=== PATIENT | male | born 1965 | race Caucasian/White ===

== ENCOUNTER 2018-10-08 07:54 | Emergency (ER) | payer BC, OTHER ==
--- NOTE | 2018-10-08 08:57 | ED ---
Lower Extremity - HPI Summary HPI Summary: Patient is a 53-year-old male who presents emergency department for right foot pain that started yesterday. Patient denies any specific injuries or falls. He does note that he works 2 jobs and stands and walks frequently at work on hard floors. Patient has a history of gastric ulcers and cannot take anti- inflammatories. He has been taking tramadol and Tylenol with mild relief of pain. Pain is only present with walking. Rest makes symptoms better. Symptoms are mild in severity. - History of Current Complaint Chief Complaint: EDExtremityLower Stated Complaint: "R FOOT PAIN" PER PT Time Seen by Provider: 10/08/18 08:14 Hx Obtained From: Patient Pain Intensity: 6 - Allergies/Home Medications Allergies/Adverse Reactions: Allergies Allergy/AdvReac Type Severity Reaction Status Date / Time MS Acetaminophen Allergy Unknown Verified 10/08/18 08:04 [From Darvocet-N] Reaction Details MS Diclofenac [Diclofenac] Allergy Unknown Verified 10/08/18 08:04 Reaction Details MS Indomethacin Allergy Unknown Verified 10/08/18 08:04 [Indomethacin] Reaction Details MS Lidocaine [Lidocaine] Allergy Unknown Verified 10/08/18 08:04 Reaction Details MS Metformin [Metformin] Allergy Unknown Verified 10/08/18 08:04 Reaction Details MS Propoxyphene Allergy Unknown Verified 10/08/18 08:04 [From Darvocet-N] Reaction Details MS Rofecoxib [From Vioxx] Allergy Unknown Verified 10/08/18 08:04 Reaction Details MS Tomato [Tomato] Allergy Unknown Verified 10/08/18 08:04 Reaction Details Perfume Allergy Unknown Verified 10/08/18 08:04 Reaction Details DUST Allergy Unknown Uncoded 10/08/18 08:04 Reaction Details ORANGE Allergy Unknown Uncoded 10/08/18 08:04 Reaction Details SUN Allergy Unknown Uncoded 10/08/18 08:04 Reaction Details PMH/Surg Hx/FS Hx/Imm Hx Previously Healthy: Yes Endocrine/Hematology History: Reports: Hx Diabetes - TYPE 2 Cardiovascular History: Reports: Hx Coronary Artery Disease - ON MED, Hx Hypertension - ON MED Denies: Hx Pacemaker/ICD Respiratory History: Reports: Other Respiratory Problems/Disorders - PNEUMONIA GI History: Reports: Hx Gastroesophageal Reflux Disease - IN THE PAST- BETTER NOW, Hx Ulcer - surgery in 01/2016 History: Reports: Hx Kidney Stones - A FEW YRS AGO Musculoskeletal History: Reports: Hx Arthritis Sensory History: Reports: Hx Contacts or Glasses Denies: Hx Hearing Aid Opthamlomology History: Reports: Hx Contacts or Glasses Neurological History: Reports: Hx Migraine - ONE A MONTH ON AVERAGE Psychiatric History: Denies: Hx Panic Disorder - Surgical History Surgery Procedure, Year, and Place: ulcer repair 01/2016. cholecystectomy 10/2015 Hx Anesthesia Reactions: No - Immunization History Date of Tetanus Vaccine: unknown Date of Influenza Vaccine: 03/16/15 Infectious Disease History: No Infectious Disease History: Denies: Traveled Outside the [place] in Last 30 Days - Family History Known Family History: Positive: None, Other - no gallbladder disease or bleeding /clotting disease - Social History Occupation: Employed Full-time Lives: Alone Alcohol Use: None Substance Use Type: Reports: None Smoking Status (MU): Former Smoker Amount Used/How Often: 1 PPD Length of Time of Smoking/Using Tobacco: 20 YRS Have You Smoked in the Last Year: No Review of Systems Constitutional: Negative Negative: Fever, Chills Positive: Other - pain to right foot Skin: Negative Negative: Bruising Negative: Weakness, Paresthesia, Numbness All Other Systems Reviewed And Are Negative: Yes Physical Exam Triage Information Reviewed: Yes Vital Signs On Initial Exam: Initial Vitals Temp Pulse Resp BP Pulse Ox 97.8 F 70 16 114/85 99 10/08/18 08:01 10/08/18 08:01 10/08/18 08:01 10/08/18 08:01 10/08/18 08:01 Vital Signs Reviewed: Yes Appearance: Positive: Well-Appearing - Pt. sitting on bed in NAD. Skin: Positive: Warm, Dry Head/Face: Positive: Normal Head/Face Inspection Eyes: Positive: Normal, EOMI Neck: Positive: Supple Musculoskeletal: Positive: Other - Pain on palpation along right achilles tendon and lateral foot. No wounds, erythema or edema. Good pedal pusle. No proximal calf pain or swelling. Neurological: Positive: Normal, CN Intact II-III Psychiatric: Positive: Affect/Mood Appropriate Diagnostics - Vital Signs Vital Signs Temp Pulse Resp BP Pulse Ox 10/08/18 08:01 97.8 F 70 16 114/85 99 - Laboratory Lab Statement: Any lab studies that have been ordered have been reviewed, and results considered in the medical decision making process. Lower Extremity Course/Dx - Course Course Of Treatment: Pt. presenting for atruamatic foot pain. No signs of infection on exam. Xray shows chronic changes without acute findings, incidental findings discussed with pt. Suspect achilles tendonitis. Pt. cannot take NSIAD. Will place on a course of prednisone for inflammation. To ice and elevate. Work excuse given. Will f.u with PCP. Pt .understands and agrees with plan. - Diagnoses Differential Diagnosis/HQI/PQRI: Positive: Arthritis, Sprain, Strain Provider Diagnoses: Achilles tendinitis Discharge - Sign-Out/Discharge Documenting (check all that apply): Patient Departure Patient Received Moderate/Deep Sedation with Procedure: No - Discharge Plan Condition: Good Disposition: HOME Prescriptions: methylPREDNISolone [Medrol Dosepak 4 MG*] 0 mg PO .SEE FERNANDO INSTRUCTION #1 tab Patient Education Materials: Achilles Tendinitis (ED) Forms: *Work Release Referrals: Johnathan Goodman MD [Primary Care Provider] - Additional Instructions: Schedule a follow up appointment with PCP Steroid as directed Ice and elevate intermittently Activity as tolerated Return to ER if symptoms change or worsen - Billing Disposition and Condition Condition: GOOD Disposition: Home
[2018-10-08 09:49] VITALS: BP 138/90
== END 2018-10-08 09:48 | disposition home or self-care (01) ==
LOC: ED 07:54
DX: M76.61 Achilles tendinitis, right leg (principal); E11.9 Type 2 diabetes mellitus without complications; I25.10 Atherosclerotic heart disease of native coronary artery without angina pectoris; I10 Essential (primary) hypertension; K21.9 Gastro-esophageal reflux disease without esophagitis; Z87.891 Personal history of nicotine dependence
CPT/HCPCS: 99282